=== PATIENT | male | born 1975 | race Caucasian/White ===

== ENCOUNTER 2024-02-09 14:47 | Outpatient (REF) | payer BC, SELFPAY ==
[2024-02-09 16:00] LABS: MANUAL DIFF FLAG NO
[2024-02-09 16:10] LABS: Basophils Percent Auto 0.5 % (0-2); Eosinophils Absolute Auto 0.1 X10*3/uL (0.0-0.4); Eosinophils Percent Auto 0.9 % (0-4); Hematocrit 46.3 % (42.0-52.0); Hemoglobin 15.6 g/dl (14.0-18.0); Imm Gran Abs Auto 0.01 X10*3/uL (0.00-0.03); Imm Gran Pct Auto 0.1 % (0.0-0.4); Lymphocytes Absolute Auto 2.6 X10*3/uL (1.2-4.9); Lymphocytes Percent Auto 30.6 % (20-40); Mean Corpuscular HGB Conc 33.7 g/dl (31.0-36.0); Mean Corpuscular Hemoglobin 28.7 pg (27.0-33.0); Mean Corpuscular Volume 85.3 fL (80.0-98.0); Monocytes Absolute Auto 0.5 X10*3/uL (0.1-1.2); Monocytes Percent Auto 5.7 % (2-11); Neutrophils Absolute Auto 5.3 x10*3/uL (2.0-8.3); Neutrophils Percent Auto 62.2 % (45-73); Platelet Count 250 X10*3/uL (160-400); Red Blood Count 5.43 X10*6/uL (4.60-5.80); Red Cell Distribution Width 12.3 % (11.0-16.0); White Blood Count 8.5 X10*3/uL (4.8-10.8)
[2024-02-09 16:41] LABS: Alanine Aminotransferase 23 U/L (0-40); Albumin Level 4.7 g/dL (3.5-5.0); Alkaline Phosphatase 67 U/L (39-117); Anion Gap 10 (12-20); Aspartate Amino Transferase 17 U/L (5-37); Bilirubin Total 0.7 mg/dL (0.0-1.0); Blood Urea Nitrogen 15 mg/dL (9-16); C Reactive Protein 0.17 mg/dL (< or = 0.50); Calcium 9.9 mg/dL (8.4-10.2); Carbon Dioxide 28 mmol/L (22-29); Chloride 106 mmol/L (96-108); Estimated Glomerular Filt Rate > 60; Glucose Random 91 mg/dL (60-115); Potassium 4.3 mmol/L (3.3-5.1); Sodium 140 mmol/L (135-145); Total Protein 7.5 g/dL (6.5-8.0); Uric Acid 6.7 mg/dL (3.4-7.0)
[2024-02-09 16:44] LABS: Rheumatoid Factor < 13.0 IU/mL (<15.0)
[2024-02-09 16:53] LABS: Erythrocyte Sedimentation Rate 2 MM/HR (0-15)
[2024-02-10 08:06] LABS: HBS Num1 5.65 mIU/mL (0-7.99); HBc Num1 0.17 S/CO (0.00-0.79); HBsAGNum1 0.29 S/CO (0.00-0.99); Hepatitis A Antibody IgM 0.13 Index (0-0.79); Hepatitis B Core Antibody Nonreactive (Nonreactive); Hepatitis B Surface Antigen Negative (Negative); ~Hepatitis A Antibody IgM Nonreactive (Nonreactive); ~Hepatitis B Surface Antibody NONREACTIVE (Nonreactive); ~Hepatitis C Antibody Nonreactive (Nonreactive)
[2024-02-13 11:13] LABS: Cyclic Citrullinated Peptide <16 UNITS
[2024-02-15 16:23] LABS: HLA B27 Negative (Negative)
== END 2024-02-09 14:48 | disposition home or self-care (01) ==
LOC: HO.LAB 14:47
PROVIDERS: PCP Nurse Practitioner Adult Health; Visit Provider Student in an Organized Health Care Education/Training Program
DX: M25.472 Effusion, left ankle (principal); Z11.59 Encounter for screening for other viral diseases
CPT/HCPCS: 36415; 80053; 84550; 85025; 85652; 86140; 86200; 86431; 86704; 86706; 86709; 86803; 86812; 87340

== ENCOUNTER 2024-02-09 14:47 | Outpatient (AMB) | payer BC, SELFPAY ==
[2024-02-09 15:08] VITALS: BP 118/70; PULSE 75; O2SAT 97; BMI 30.8
--- NOTE | 2024-02-09 15:08 | A.OFFVIS_ITS ---
Vital Signs 02/09/24 15:08 Height 5 ft 4 in Weight 179 lb 3.773 oz BMI 30.8 BP 118/70 Blood Pressure Location Rt brachial Position Sitting Pulse 75 Pulse Source Pulse Oximeter Pulse Oximetry (%) 97 Oxygen Delivery Method Room Air Intake Visit Reasons: Lt Ankle swelling/? pseudogout Intake Note: New pt presents today for consult. Intermittent left ankle pain and swelling. Has tried steroids, colchicine, indomethacin Last flare up mid-late November. Weather Stripper Required: No Accompanied by: Self / Same As Patient Allergies shellfish derived Allergy (Verified 02/09/24 15:11) Rash, Itching Medication List - Last Reconciled 02/09/24 by Sultana Ibarra MD atorvastatin 40 mg PO DAILY HPI Comments Details: This is a 48-year-old male who presents for evaluation of left ankle swelling. The condition started in August of 2023 when patient presented to urgent care with abrupt onset of left ankle pain , swelling, warmth and redness. He went to urgent can not air was prescribed colchicine and Medrol with resolution of symptoms. He had another attack and at that time he was evaluated by his PCP, he was prescribed indomethacin, it caused stomach upset and patient did not want to continue taking it as he has only 1 kidney. He was prescribed prednisone which was dramatically effective. He had another episode a month later treated with prednisone, most recent episode was the middle of November. Stated that the most recent episode was quite mild. Patient stated that around the time he started having his 1st gout attack he was starting to gout more to lose weight. He has been using an exercise bike 3-4 days a week. He denies any other joint pain swelling or stiffness. Has any back stiffness. Patient denies any history of kidney stones. Does not have psoriasis. Denies history suggestive of uveitis or colitis. Patient donated a kidney for his father in 2005. He is unaware of any family history of an autoimmune rheumatic disease. [facility], [facility] Surgical History History of nephrectomy Family History Father Diabetes Mother No problems noted. 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 Review of Systems Const Reports weight loss (Intentional) Musc Reports arthralgias, Reports joint swelling and Reports stiffness Physical Exam Vital Signs: Last Vital Signs Pulse 75 02/09/24 15:08 BP 118/70 02/09/24 15:08 Pulse Ox 97 02/09/24 15:08 Oxygen Delivery Method Room Air 02/09/24 15:08 BMI result Body Mass Index 30.8 Const General: cooperative, healthy appearing and comfortable Nutritional Appearance: overweight Orientation/consciousness: patient oriented x3 Limitations: no limitations HEENT Head: Yes normocephalic and Yes atraumatic Mouth: moist mucous membranes Resp Effort & Inspection: normal respiratory effort and able to speak in complete sentences Auscultation: clear to auscultation bilaterally Cardio Rate: regular rate Rhythm: regular rhythm GI Inspection: No distended Palpation (GI): Soft to palpation and nontender Skin General skin exam: no rashes or lesions noted Neuro General: patient oriented x3 Extrem Other: No active synovitis No nail pitting Normal nailfold capillaroscopy Keaton test 10-15 cm Negative straight leg raise test bilaterally Negative Fabere test bilaterally Negative resisted wrist extension test bilaterally Normal range of motion of elbows without pain Results Reviewed Results Reviewed: Left ankle? x-ray 08/2023? Well corticated densities inferior to the medial and lateral malleoli in keeping with sequelae of remote trauma.? Os trigonum is noted.? There is no evidence of bone destruction or fracture.? The ankle mortise is symmetric and the talar dome is intact.? Bony alignment is maintained.? They included cartilage spaces are within normal range.?? Mild diffuse soft tissue swelling Left foot x-ray 08/2023? No evidence of acute fracture or malalignment.? Mild narrowing of the 1st MTP joint.? Small plantar calcaneal spur and dorsal calcaneal enthesophyte Impression:? Evaluation of the left foot and ankle demonstrates no evidence of acute fracture or malalignment? Well corticated densities adjacent to the medial and lateral malleoli in keeping with sequelae of remote trauma Labs 10/2023? Gonorrhea DNA probe urine/chlamydia DNA probe urine negative? Uric acid 6.1 normal? Rheumatoid factor negative? Lyme profile negative? ESR 6? Assessment & Plan Assessment & Plan (1) Left ankle swelling: Code(s): M25.472 - Effusion, left ankle Category: Medical Plan: This is a 48-year-old male who presents for evaluation of multiple episodes of abrupt onset of left ankle swelling. Symptoms improved with colchicine and/or steroids. On exam there is no active synovitis. Uric acid level during the attack within normal. Gout versus seronegative spondyloarthropathy such as psoriatic arthritis or ankylosing spondylitis Will order comprehensive serology to further evaluate Follow-up in 4-5 weeks Plan I spent 48 minutes reviewing patient's chart, evaluating patient, ordering diagnostic workup, counseling patient and documenting in the chart Orders: Orders Complete Blood Count Auto Diff Today M25.472 - Effusion, left ankle Comprehensive Met. Panel Today M25.472 - Effusion, left ankle Hepatitis A,B,C Profile Today Z11.59 - Encounter for screening for other viral diseases C Reactive Protein Today M25.472 - Effusion, left ankle Erythrocyte Sedimentation Rate Today M25.472 - Effusion, left ankle Uric Acid Today M25.472 - Effusion, left ankle HLA B27 Today M25.472 - Effusion, left ankle Rheumatoid Factor Today M25.472 - Effusion, left ankle Cyclic Citrullinated Peptide Today M25.472 - Effusion, left ankle Coding Level of Care Code New Pt Level 4 (12732) Diagnoses Left ankle swelling M25.472
== END 2024-02-09 15:40 | disposition home or self-care (01) ==
LOC: HO.RHE 14:47
PROVIDERS: PCP Nurse Practitioner Adult Health; Visit Provider Student in an Organized Health Care Education/Training Program
DX: M25.472 Effusion, left ankle (principal)
CPT/HCPCS: 99204

== ENCOUNTER 2024-03-13 11:29 | Outpatient (AMB) | payer BC, SELFPAY ==
--- NOTE | 2024-03-13 11:30 | A.OFFVIS_ITS ---
Vital Signs 03/13/24 11:35 Height 5 ft 2 in Weight 186 lb 1.122 oz BMI 34.0 BP 134/80 Blood Pressure Location Lt brachial Position Sitting Respiration 18 Pulse 57 Pulse Source Pulse Oximeter Pulse Oximetry (%) 97 Oxygen Delivery Method Room Air Intake Visit Reasons: ankle swelling/CM Intake Note: Patient presents for ankle swelling. Allergies shellfish derived Allergy (Verified 03/13/24 11:34) Rash, Itching Medication List - Last Reconciled 03/13/24 by Sultana Ibarra MD atorvastatin 40 mg PO DAILY HPI Comments Details: Patient returns for follow-up after completion of his diagnostic workup. States that he has not had any flare-ups of joint pain since last visit. Doing quite well overall. No complaints today Initial history: This is a 48-year-old male who presents for evaluation of left ankle swelling. The condition started in August of 2023 when patient presented to urgent care with abrupt onset of left ankle pain , swelling, warmth and redness. He went to urgent can not air was prescribed colchicine and Medrol with resolution of symptoms. He had another attack and at that time he was evaluated by his PCP, he was prescribed indomethacin, it caused stomach upset and patient did not want to continue taking it as he has only 1 kidney. He was prescribed prednisone which was dramatically effective. He had another episode a month later treated with prednisone, most recent episode was the middle of November. Stated that the most recent episode was quite mild. Patient stated that around the time he started having his 1st gout attack he was starting to gout more to lose weight. He has been using an exercise bike 3-4 days a week. He denies any other joint pain swelling or stiffness. Has any back stiffness. Patient denies any history of kidney stones. Does not have psoriasis. Denies history suggestive of uveitis or colitis. Patient donated a kidney for his father in 2005. He is unaware of any family history of an autoimmune rheumatic disease. [facility] Surgical History History of nephrectomy Family History Father Diabetes Mother No problems noted. 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 Review of Systems Musc Denies arthralgias, Denies joint swelling and Denies stiffness Physical Exam Vital Signs: Last Vital Signs Pulse 57 03/13/24 11:35 Resp 18 03/13/24 11:35 BP 134/80 03/13/24 11:35 Pulse Ox 97 03/13/24 11:35 Oxygen Delivery Method Room Air 03/13/24 11:35 BMI result Body Mass Index 34.0 Const General: cooperative, healthy appearing and comfortable Nutritional Appearance: overweight Orientation/consciousness: patient oriented x3 Limitations: no limitations HEENT Head: Yes normocephalic and Yes atraumatic Resp Effort & Inspection: normal respiratory effort and able to speak in complete sentences Skin General skin exam: no rashes or lesions noted Neuro General: patient oriented x3 Extrem Other: No active synovitis No nail pitting Normal nailfold capillaroscopy Keaton test 10-15 cm Negative straight leg raise test bilaterally Negative Fabere test bilaterally Negative resisted wrist extension test bilaterally Normal range of motion of elbows without pain Results Reviewed Results Reviewed: Left ankle? x-ray 08/2023? Well corticated densities inferior to the medial and lateral malleoli in keeping with sequelae of remote trauma.? Os trigonum is noted.? There is no evidence of bone destruction or fracture.? The ankle mortise is symmetric and the talar dome is intact.? Bony alignment is maintained.? They included cartilage spaces are within normal range.?? Mild diffuse soft tissue swelling Left foot x-ray 08/2023? No evidence of acute fracture or malalignment.? Mild narrowing of the 1st MTP joint.? Small plantar calcaneal spur and dorsal calcaneal enthesophyte Impression:? Evaluation of the left foot and ankle demonstrates no evidence of acute fracture or malalignment? Well corticated densities adjacent to the medial and lateral malleoli in keeping with sequelae of remote trauma Labs 10/2023? Gonorrhea DNA probe urine/chlamydia DNA probe urine negative? Uric acid 6.1 normal? Rheumatoid factor negative? Lyme profile negative? ESR 6? Assessment & Plan Assessment & Plan (1) Left ankle swelling: Code(s): M25.472 - Effusion, left ankle Category: Medical Plan: This is a 48-year-old male who presents for evaluation of multiple episodes of abrupt onset of left ankle swelling. Patient showed me a picture, his left ankle and foot was swollen red. Symptoms improved with colchicine and/or steroids. On exam there is no active synovitis. Uric acid level during the attack within normal. Repeat uric acid level 6.7 Comprehensive serology for underlying autoimmune rheumatic disease is negative with normal inflammatory markers. At this time patient is clinical presentation is rather consistent with gout. Possible underlying seronegative spondyloarthropathy remains a possibility but seems less likely. At this time advised patient to try to follow a low purine right especially avoiding alcohol and beer in particular. We will monitor patient for development of any other flare-ups. Advised patient to call the office if he gets a flare-up Re-evaluate in 6 months Plan I spent 18 minutes reviewing patient's chart, evaluating patient, counseling patient and documenting in the chart Coding Level of Care Code Est Pt Level 3 (21187) Diagnoses Left ankle swelling M25.472
[2024-03-13 11:35] VITALS: BP 134/80; PULSE 57; RESP 18; O2SAT 97; BMI 34.0
== END 2024-03-13 11:58 | disposition home or self-care (01) ==
PROVIDERS: PCP Nurse Practitioner Adult Health; Visit Provider Student in an Organized Health Care Education/Training Program
DX: M25.472 Effusion, left ankle (principal)
CPT/HCPCS: 99213

== ENCOUNTER → 2024-03-13 11:29 | Outpatient (BNVA) | payer BC, SELFPAY | PROVIDERS: PCP Nurse Practitioner Adult Health; Visit Provider Student in an Organized Health Care Education/Training Program ==